=== PATIENT | female | born 1990 | race Caucasian/White ===

== ENCOUNTER 2024-04-09 05:35 | Emergency (ER) | payer OTHER, SELFPAY ==
--- NOTE | ~2024-04-09 | US_ITS ---
EXAM: Pelvic Ultrasound CLINICAL INDICATION: Right lower quadrant pain COMPARISON: Same day CT abdomen and pelvis TECHNIQUE: The pelvis was evaluated using transabdominal and transvaginal imaging. Color Doppler imaging and spectral analysis of the bilateral ovaries was also performed. FINDINGS: The uterus measures 7.5 x 2.7 x 4.1 cm in longitudinal by AP by transverse dimension. There appears to be a septate type uterus with both the right and left endometrial stripes measuring approximately 0.5 cm. The left ovary measures approximately 2.6 x 2.8 x 2.3 cm and is normal. The right ovary measures approximately 2.4 x 3.1 x 2.4 cm and is also normal. Spectral analysis reveals normal arterial and venous waveforms in the bilateral ovaries. There are no abnormal adnexal masses. There is no free fluid in the pelvis. US/US pelvic ovarian doppler IMPRESSION: Septate type uterus. Otherwise unremarkable sonographic imaging of the pelvis. Electronically signed by: Marlo Ramirez MD 04/09/2024 10:59 AM EDT
--- NOTE | ~2024-04-09 | CT_ITS ---
EXAMINATION: CT ABDOMEN AND PELVIS WITHOUT CONTRAST CLINICAL INFORMATION: Right lower quadrant pain COMPARISON: None available. TECHNIQUE: Multidetector volumetric imaging was performed from the superior aspect of the liver through the pubic symphysis. Sagittal and coronal reformatted images were obtained on the technologist's workstation. This CT examination was performed using dose optimization techniques as appropriate, variously including the following: *Automated exposure control *Adjustment of mA and/or kV according to patient size (this includes techniques or standardized protocols for targeted exams where dose is matched to indication/reason for exam; i.e. extremities or head) *Use of iterative reconstruction technique DLP: 313 mGy-cm FINDINGS: LUNG BASES: The visualized lung bases are unremarkable. LIVER, GALLBLADDER, AND BILIARY TREE: The liver is normal in size, shape, and attenuation. No focal hepatic lesion or biliary ductal dilatation is present. The gallbladder is unremarkable with no evidence of radiopaque gallstones, gallbladder wall thickening, or obvious pericholecystic inflammatory changes. PANCREAS: Unremarkable. SPLEEN: Unremarkable. ADRENAL GLANDS: Unremarkable. KIDNEYS AND URETERS: The kidneys are normal in size, shape, and attenuation. No hydronephrosis, hydroureter, or calculi seen. No perinephric stranding. BLADDER: Unremarkable. GASTROINTESTINAL TRACT: The small and large bowel are unremarkable. The appendix is unremarkable. ABDOMINAL WALL: No significant hernia is appreciated. LYMPH NODES: Normal. VASCULAR: Unremarkable. PELVIC VISCERA: Unremarkable. Trace free pelvic fluid. OSSEOUS STRUCTURES: Unremarkable. CT/CT abdomen pelvis wo IV con IMPRESSION: No focal inflammatory process or obstruction. Normal appendix. Fleischner guidelines were followed. Electronically signed by: Jonh Wolfe MD 04/09/2024 08:12 AM EDT
--- NOTE | ~2024-04-09 | US_ITS ---
EXAM: Pelvic Ultrasound CLINICAL INDICATION: Right lower quadrant pain COMPARISON: Same day CT abdomen and pelvis TECHNIQUE: The pelvis was evaluated using transabdominal and transvaginal imaging. Color Doppler imaging and spectral analysis of the bilateral ovaries was also performed. FINDINGS: The uterus measures 7.5 x 2.7 x 4.1 cm in longitudinal by AP by transverse dimension. There appears to be a septate type uterus with both the right and left endometrial stripes measuring approximately 0.5 cm. The left ovary measures approximately 2.6 x 2.8 x 2.3 cm and is normal. The right ovary measures approximately 2.4 x 3.1 x 2.4 cm and is also normal. Spectral analysis reveals normal arterial and venous waveforms in the bilateral ovaries. There are no abnormal adnexal masses. There is no free fluid in the pelvis. US/US pelvic and transvaginal IMPRESSION: Septate type uterus. Otherwise unremarkable sonographic imaging of the pelvis. Electronically signed by: Marlo Ramirez MD 04/09/2024 10:59 AM EDT
[2024-04-09 05:39] VITALS: BP 97/57; PULSE 66; RESP 18; TEMP 36.4; O2SAT 99; BMI 19.8
--- NOTE | 2024-04-09 06:00 | MHC.EDTECH ---
Patient brought into triage area,labs,and urine obtained and sent to lab.
[2024-04-09 06:01] LABS: MANUAL DIFF FLAG NO
[2024-04-09 06:02] LABS: Basophils Absolute Auto 0.1 X10*3/uL (0.0-0.2); Basophils Percent Auto 0.3 % (0-2); Eosinophils Percent Auto 0.1 % (0-4); Hematocrit 43.3 % (37.0-47.0); Hemoglobin 14.5 g/dl (12.0-16.0); Imm Gran Abs Auto 0.05 X10*3/uL (0.00-0.03); Imm Gran Pct Auto 0.3 % (0.0-0.4); Lymphocytes Percent Auto 6.7 % (20-40); Mean Corpuscular HGB Conc 33.5 g/dl (31.0-35.0); Mean Corpuscular Hemoglobin 31.7 pg (27.0-33.0); Mean Corpuscular Volume 94.5 fL (80.0-98.0); Mean Platelet Volume 10.6 fL (9.4-12.3); Monocytes Absolute Auto 0.5 X10*3/uL (0.1-1.2); Monocytes Percent Auto 3.1 % (2-11); Neutrophils Absolute Auto 13.1 x10*3/uL (2.0-8.3); Neutrophils Percent Auto 89.5 % (45-73); Platelet Count 283 X10*3/uL (160-400); Red Blood Count 4.58 X10*6/uL (4.20-5.50); Red Cell Distribution Width 12.7 % (11.0-16.0); White Blood Count 14.6 X10*3/uL (4.8-10.8)
[2024-04-09 06:03] LABS: Appearance Urine Clear; Color Urine Yellow; Glucose Urine UA Negative (Negative); Leukocyte Esterase Urine Negative (Negative); Nitrite Urine Negative (Negative); PH 5.5 (5.0-9.0); UMIC TRIGGER UACC YES; Urine Blood Large (3+) (Negative); Urine Ketones 15 mg/dL (Negative); Urine Protein Trace mg/dL (Neg-Trace)
[2024-04-09 06:16] LABS: Bacteria Urine Trace (None Seen); RBC Urine >20 /HPF (0-2); WBC Urine 0-5 /HPF (0-5)
[2024-04-09 06:26] LABS: Alanine Aminotransferase 15 U/L (0-31); Albumin Level 4.5 g/dL (3.5-5.0); Alkaline Phosphatase 53 U/L (39-117); Anion Gap 15 (12-20); Aspartate Amino Transferase 18 U/L (5-31); Bilirubin Total 0.4 mg/dL (0.0-1.0); Blood Urea Nitrogen 15 mg/dL (9-16); Calcium 9.3 mg/dL (8.4-10.2); Carbon Dioxide 22 mmol/L (22-29); Chloride 108 mmol/L (96-108); Estimated Glomerular Filt Rate > 60; Glucose Random 128 mg/dL (60-115); HCG Quantitative < 2 mIU/mL; Sodium 141 mmol/L (135-145); Total Protein 7.3 g/dL (6.5-8.0)
--- NOTE | 2024-04-09 06:39 | ED_ITS ---
HPI - Female Genitourinary General Chief complaint: Urogenital-Female Stated complaint: rt side pain/constant urge to urinate but nothing Time Seen by Provider: 04/09/24 06:35 Source: patient Mode of arrival: ambulatory Limitations: no limitations History of Present Illness ED Provider: Ginny KIDD HPI Narrative: This is a 33-year-old female presenting with concerns of right-sided abdominal pain in the lower region into the groin, reports it started as colicky pain and now is pretty constant. She was also having some discomfort when trying to urinate difficulty initiating stream. Incomplete voiding. No history of kidney stones in the past. Denies fevers, chills, nausea, vomiting, chest pain, shortness of breath, headache, vision changes, dizziness, weakness. Related Data Previous Rx's ?Medication ?Instructions ?Recorded cefdinir 300 mg capsule 300 mg PO BID 5 days #10 caps 04/09/24 ketorolac 10 mg tablet 10 mg PO TID PRN pain 5 days #15 04/09/24 tabs Allergies Allergy/AdvReac Type Severity Reaction Status Date / Time No Known Allergies Allergy Verified 04/09/24 05:42 Review of Systems 2 Review of Systems: Yes all other systems are reviewed and are negative PMFSH Past Medical History Attestation statement: The following information was validated with the patient. Source: old records reviewed and nursing notes reviewed Social History Social History Alcohol intake: never Smoked in Last 30 Days: Yes Use of substances other than those prescribed or required for medical reasons: Yes Substance Use Type: Marijuana Advance Directives: No Advance Directives Information Provided: No Patient : No Physical Exam 2 Vital Signs: Vital Signs: Last Vital Signs Temp 97.9 F 04/09/24 10:14 Pulse 71 04/09/24 10:14 Resp 17 04/09/24 10:14 BP 102/50 L 04/09/24 10:14 Pulse Ox 96 04/09/24 10:14 O2 Del Method Room Air 04/09/24 10:14 BMI result Body Mass Index 19.8 vss Appearance: Alert.? Oriented X3.? No acute distress.? Head: Normocephalic, atraumatic, no step-offs or deformities Eyes: Pupils equal, round and reactive to light.? ENT: Pharynx normal.? Neck: Normal inspection.? Neck supple.? CVS: Normal heart rate and rhythm.? Pulses normal.? Respiratory: No respiratory distress.? Breath sounds normal.? Abdomen: Soft and nontender.? Skin: Skin warm and dry.? Normal skin color.? Normal skin turgor.? Extremities: No lower extremity edema.? No calf ttp. 5/5 strength to bilateral upper and lower extremities Back: No midline tenderness, no C-spine tenderness, full range of motion, no CVA tenderness bilaterally Neuro: Oriented X 3.? No motor deficit.? No sensory deficit. CN 2-12 intact Course Reevaluation(s) Reevaluation #1: CBC with slight leukocytosis and left shift. Chemistry no acute findings in the intervention. Normal lactic. Normal beta hCG. UA with blood and trace bacteria question early UTI versus cystitis will treat for UTI however due to patient's white count lower abdominal discomfort. Ultrasound septic type uterus otherwise unremarkable no signs of torsion. CT abdomen pelvis no focal inflammatory process or obstruction normal appendix. Patient feeling much better. At this time patient to be discharged home. Educated patient on diagnosis and treatment plan, answered all question, patient verbalizes understanding. At this time patient will be discharged home, advised to return with new or worsening symptoms. Educated on worrisome signs and symptoms and when to return. At this time I feel comfortable discharge home. Time: 11:15 Medications Administered Discontinued Medications Generic Name Dose Route Start Last Admin Trade Name Freq PRN Reason Stop Dose Admin Sodium Chloride 1,000 mls @ 999 mls/hr 04/09/24 07:15 04/09/24 09:11 Ns IV 04/09/24 08:15 Infused .Q1H1M OMAR Infusion Ketorolac Tromethamine 30 mg 04/09/24 07:05 04/09/24 07:25 Ketorolac Tromethamine 30 Mg/Ml Vial IVPUSH 04/09/24 07:06 30 mg ONCE ONE Administration Prednisone 20 mg 04/09/24 07:05 04/09/24 07:25 Prednisone 20 Mg Tablet PO 04/09/24 07:06 20 mg ONCE ONE Administration Tamsulosin HCl 0.4 mg 04/09/24 07:05 04/09/24 07:25 Tamsulosin Hcl 0.4 Mg Capsule PO 04/09/24 07:06 0.4 mg ONCE ONE Administration Medical Decision Making Medical Decision Making [facility] Narrative: 0645 33 yo f presents w/ difficulties urinating and RLQ pain ongoing since last night PE benign Hx and PE concerning for obstructing stone vs kidney stone vs appendicitis. Less likely metabolic derangments, acute abdomen, pylonephritis. Will rule out UTI Plan- labs, urine, imaging Differential Diagnosis Differential Diagnoses: The differential diagnosis associated with the presentation includes Hx and PE concerning for obstructing stone vs kidney stone vs appendicitis. Less likely metabolic derangments, acute abdomen, pylonephritis. Will rule out UTI Admission/Observation Consideration of admission/observation: Escalation of care including admission/observation considered Possible Lab Data [facility] Lab Attestation statement: I reviewed the patient's lab results. 04/09/24 05:54 04/09/24 05:53 Labs: Lab Results 04/09/24 04/09/24 04/09/24 Range/Units 05:53 05:54 06:55 WBC 14.6 H (4.8-10.8) X10*3/uL RBC 4.58 (4.20-5.50) X10*6/uL Hgb 14.5 (12.0-16.0) g/dl Hct 43.3 (37.0-47.0) % MCV 94.5 (80.0-98.0) fL MCH 31.7 (27.0-33.0) pg MCHC 33.5 (31.0-35.0) g/dl RDW 12.7 (11.0-16.0) % Plt Count 283 (160-400) X10*3/uL MPV 10.6 (9.4-12.3) fL Immature Gran % (Auto) 0.3 (0.0-0.4) % Neut % (Auto) 89.5 H (45-73) % Lymph % (Auto) 6.7 L (20-40) % Nolan % (Auto) 3.1 (2-11) % Eos % (Auto) 0.1 (0-4) % Baso % (Auto) 0.3 (0-2) % Lymph # (Auto) 1.0 L (1.2-4.9) X10*3/uL Nolan # (Auto) 0.5 (0.1-1.2) X10*3/uL Eos # (Auto) 0.0 (0.0-0.4) X10*3/uL Baso # (Auto) 0.1 (0.0-0.2) X10*3/uL Abs Immat Gran (auto) 0.05 H (0.00-0.03) X10*3/uL Absolute Neuts (auto) 13.1 H (2.0-8.3) x10*3/uL Absolute Nucleated RBC 0.000 (0.0-0.012) X10*3/uL Nucleated RBC % (auto) 0.0 (0.0-0.2) /100WBC Sodium 141 (135-145) mmol/L Potassium 4.0 (3.3-5.1) mmol/L Chloride 108 (96-108) mmol/L Carbon Dioxide 22 (22-29) mmol/L Anion Gap 15 (12-20) BUN 15 (9-16) mg/dL Creatinine 0.96 (0.5-1.4) mg/dL Estim Creat Clear Calc 74.0 Estimated GFR > 60 Random Glucose 128 H (60-115) mg/dL Lactic Acid 0.7 (0.5-2.0) mmol/L Calcium 9.3 (8.4-10.2) mg/dL Total Bilirubin 0.4 (0.0-1.0) mg/dL AST 18 (5-31) U/L ALT 15 (0-31) U/L Alkaline Phosphatase 53 (39-117) U/L Total Protein 7.3 (6.5-8.0) g/dL Albumin 4.5 (3.5-5.0) g/dL Beta HCG, Quant < 2 mIU/mL Urine Color Yellow Urine Appearance Clear Urine pH 5.5 (5.0-9.0) Ur Specific Josephine 1.020 (1.005-1.025) Urine Protein Trace (Neg-Trace) mg/dL Urine Glucose (UA) Negative (Negative) mg/dL Urine Ketones 15 (Negative) mg/dL Urine Blood Large (3+) H (Negative) Urine Nitrite Negative (Negative) Ur Leukocyte Esterase Negative (Negative) Urine RBC >20 H (0-2) /HPF Urine WBC 0-5 (0-5) /HPF Ur Squamous Epith Cells 6-10 (0-2) /HPF Urine Bacteria Trace (None Seen) Hyaline Casts 6-10 (0-2) /LPF Independent Interpretation I performed an independent interpretation of an: Ultrasound (US/US pelvic and transvaginal IMPRESSION: Septate type uterus. Otherwise unremarkable sonographic imaging of the pelvis. ) and CT Scan ( CT/CT abdomen pelvis wo IV con IMPRESSION: No focal inflammatory process or obstruction. Normal appendix. Fleischner guidelines were followed.) Radiology Impression Discussion of test interpretation with radiology: I have reviewed the radiologist's reading. Prescription Management I considered prescription management with: Antibiotic Chronic Conditions Patient?s care impacted by: Other (strong period cramps) Critical Care Time Critical Care Time Critical Care Time: Yes Total Critical Care Time: 35 Attestation: I attest to this time spent taking care of the patient, obtaining history, physical, reviewing labs, imaging, treatment of patients condition +/- specialist/hospitalist consult Discharge Plan Discharge Clinical Impression: Lower abdominal pain, Urinary tract infection Patient Disposition: Home, Self-Care Instructions: Urinary Tract Infection in Women (ED), Abdominal Pain (ED) Additional Instructions: Take your medications as prescribed. If you were prescribed antibiotics today, it is important that you take your medication to their entirety, do not skip any doses, do not finish them early. Follow-up with your primary care provider this week. Return to the emergency department with new or worsening symptoms. Such as fevers, chills, chest pain, shortness of breath, nausea, vomiting, dizziness, headache, vision changes, lethargy In case of emergency call 911 Toradol has been sent to your pharmacy, you tolerated this well in the department. Please take this as prescribed do not take this with ibuprofen, or other NSAIDs, do not mix this with alcohol. Side effects of this medication including increased risk for bleeding and possible kidney injury. US/US pelvic ovarian doppler IMPRESSION: Septate type uterus. Otherwise unremarkable sonographic imaging of the pelvis. CT/CT abdomen pelvis wo IV con IMPRESSION: No focal inflammatory process or obstruction. Normal appendix. Fleischner guidelines were followed. Prescriptions: New ketorolac 10 mg tablet 10 mg PO TID PRN (Reason: pain) 5 Days Qty: 15 0RF Rx Instructions: Tolerated IM or IV in department cefdinir 300 mg capsule 300 mg PO BID 5 Days Qty: 10 0RF Referrals: Physician,None [Primary Care Provider] - 2 days Stand Alone Forms: Work/School Release Print Language: [place]
[2024-04-09 07:16] LABS: Lactic Acid 0.7 mmol/L (0.5-2.0)
[2024-04-09 07:20] VITALS: BP 97/59; PULSE 78; RESP 20; TEMP 36.7; O2SAT 98
[2024-04-09] MEDS: predniSONE 20 MG TABLET PO (07:25)
[2024-04-09] MEDS: Ketorolac Tromethamine 30 MG/ML VIAL IVPUSH (07:25)
[2024-04-09] MEDS: Tamsulosin HCL 0.4 MG CAPSULE PO (07:25)
[2024-04-09] MEDS: 0.9 % Sodium Chloride 1,000 ML 999 ML IV (07:25)
[2024-04-09 08:00] VITALS: RESP 20
[2024-04-09 10:14] VITALS: BP 102/50; PULSE 71; RESP 17; TEMP 36.6; O2SAT 96
[2024-04-09 11:20] VITALS: BP 112/72; PULSE 66; RESP 18; TEMP 36.7; O2SAT 97
== END 2024-04-09 11:25 | disposition home or self-care (01) ==
PROVIDERS: Emergency Medicine; Physician Assistant; Emergency Provider Internal Medicine
DX: N39.0 Urinary tract infection, site not specified (principal); R39.11 Hesitancy of micturition; R10.31 Right lower quadrant pain
CPT/HCPCS: 36415; 74176; 76830; 76856; 80053; 81001; 83605; 84702; 85025; 87040; 93975; 96361; 96374; 99284; J1885